=== PATIENT | male | born 1975 | race African-American/Black ===

== ENCOUNTER 2022-10-15 10:12 | Emergency (ER) | payer OTHER, SELFPAY ==
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
[2022-10-15 11:21] VITALS: BP 120/78; BP 130/74; PULSE 86; RESP 16; TEMP 36.3; O2SAT 99; BMI 20.2
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
[2022-10-15 14:29] VITALS: BP 111/74; PULSE 81; RESP 18; TEMP 36.7; O2SAT 96
[2022-10-15] MEDS: Ibuprofen 600 MG TABLET PO (15:38)
[2022-10-15] MEDS: Acetaminophen 325 MG TABLET 650 MG PO (15:38)
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
[2022-10-15 16:19] VITALS: BP 118/76; PULSE 84; RESP 18; TEMP 36.8; O2SAT 98
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
== END 2022-10-15 17:49 | disposition home or self-care (01) ==
PROVIDERS: Emergency Provider Emergency Medicine
DX: S29.012A Strain of muscle and tendon of back wall of thorax, initial encounter (principal); V57.5XXA Driver of pick-up truck or van injured in collision with fixed or stationary object in traffic accident, initial encounter; Y93.89 Activity, other specified; Y92.488 Other paved roadways as the place of occurrence of the external cause; Y99.0 Civilian activity done for income or pay
CPT/HCPCS: 71046; 72070; 73030; 73120; 99283; 99284